=== PATIENT | male | born 1990 | race Caucasian/White ===

== ENCOUNTER 2016-06-11 16:10 | Emergency (ER) | payer MEDICAID ==
[2016-06-11] MEDS ORDERED: Ketorolac 60 MG/2 ML SDV IM ONE (16:36)
--- NOTE | 2016-06-11 16:38 | EDM.PDOC ---
ED HPI GENERAL MEDICAL PROBLEM - General Chief Complaint: ENT Problem Stated Complaint: SORE THROAT Time Seen by Provider: 06/11/16 16:30 - History of Present Illness INITIAL COMMENTS - FREE TEXT/NARRATIVE: HISTORY AND PHYSICAL: History of present illness: The patient is a 25-year-old male with a history of 2-3 days of sore throat nasal congestion cough and bodyaches. He has had subjective fevers and chills but is able to tolerate fluids. He has no abdominal pain chest pain shortness of breath vomiting or diarrhea. There other ill contacts in his household. Patient did not get his influenza shot this year. Patient says that he has discomfort with swallowing and with speaking but he is able to swallow and speak Review of systems: As per history of present illness and below otherwise all systems reviewed and negative. Past medical history: As per history of present illness and as reviewed below otherwise noncontributory. Surgical history: As per history of present illness and as reviewed below otherwise noncontributory. Social history: No reported history of drug or alcohol abuse. Family history: As per history of present illness and as reviewed below otherwise noncontributory. Physical exam: General: Well-developed well-nourished male who is nontoxic vital signs been reviewed by me. He has a slightly softened voice but it is not HEENT: Atraumatic, normocephalic, pupils reactive, negative for conjunctival pallor or scleral icterus, mucous membranes moist, throat clear of exudates and swelling but the posterior oropharynx is very reddened, uvula is midline, there is shotty anterior cervical adenopathy without posterior adenopathy no nuchal rigidity,, neck supple, nontender, trachea midline. Lungs: Clear to auscultation, breath sounds equal bilaterally, chest nontender. Heart: S1S2, regular, negative for clicks, rubs, or JVD. Abdomen: Soft, nondistended, nontender. NABS Genitourinary: Deferred. Rectal: Deferred. Extremities: Atraumatic, negative for cords or calf pain. Neurovascular unremarkable. Neuro: Awake, alert, oriented. Cranial nerves II through XII unremarkable. Cerebellum unremarkable. Motor and sensory unremarkable throughout. Exam nonfocal. Diagnostics: Influenza rapid strep Therapeutics: Toradol Impression: Pharyngitis/ upper respiratory illness Definitive disposition and diagnosis as appropriate pending reevaluation and review of above. throat Pain Score (Numeric/FACES): 9 - Related Data Allergies Allergy/AdvReac Type Severity Reaction Status Date / Time No Known Allergies Allergy Verified 11/04/15 18:30 Home Meds: Home Meds . [No Known Home Meds] 11/04/15 [History] Past Medical History - Past Health History Medical/Surgical History: Denies Medical/Surgical History HEENT History: Reports: None Cardiovascular History: Reports: None Respiratory History: Reports: None Gastrointestinal History: Reports: None Genitourinary History: Reports: None Musculoskeletal History: Reports: Fracture Other Musculoskeletal History: hx of fx in both hands Neurological History: Reports: None Psychiatric History: Reports: None Endocrine/Metabolic History: Reports: Obesity/BMI 30+ Hematologic History: Reports: None Immunologic History: Reports: None Oncologic (Cancer) History: Reports: None Dermatologic History: Reports: None - Past Surgical History Head Surgeries/Procedures: Reports: None HEENT Surgical History: Reports: None Cardiovascular Surgical History: Reports: None Respiratory Surgical History: Reports: None GI Surgical History: Reports: Hernia, inguinal Male Surgical History: Reports: None Endocrine Surgical History: Reports: None Neurological Surgical History: Reports: None Musculoskeletal Surgical History: Reports: None Oncologic Surgical History: Reports: None Dermatological Surgical History: Reports: None Social & Family History - Family History Family Medical History: Noncontributory - Tobacco Use Smoking Status *Q: Never Smoker Second Hand Smoke Exposure: No - Caffeine Use Caffeine Use: Reports: Coffee - Alcohol Use Days Per Week of Alcohol Use: 0 - Recreational Drug Use Recreational Drug Use: No Drug Use in Last 12 Months: No ED ROS GENERAL - Review of Systems Review Of Systems: ROS reveals no pertinent complaints other than HPI. ED EXAM, GENERAL - Physical Exam Exam: See Below (See dictation) Course - Vital Signs Last Recorded V/S: Last Vital Signs Temp 35.9 C 06/11/16 16:25 Pulse 106 H 06/11/16 16:25 Resp 20 06/11/16 16:25 BP 124/73 06/11/16 16:25 Pulse Ox 97 06/11/16 16:25 - Orders/Labs/Meds Orders: Active Orders 24 hr Category Date Time Status CULTURE STREP A CONFIRMATION [RM] Stat Lab 06/11/16 16:57 Results STREP SCRN A RAPID W CULT CONF [RM] Stat Lab 06/11/16 16:57 Results Meds: Medications Discontinued Medications Generic Name Dose Route Start Last Admin Trade Name Иванq PRN Reason Stop Dose Admin Ketorolac Tromethamine 60 mg 06/11/16 16:36 06/11/16 17:00 Toradol IM 06/11/16 16:37 60 mg ONETIME ONE Administration Departure - Departure Time of Disposition: 17:39 Disposition: Home, Self-Care 01 Condition: good Clinical Impression: Pharyngitis Qualifiers: Pharyngitis/tonsillitis etiology: unspecified etiology Qualified Code(s): J02.9 - Acute pharyngitis, unspecified Upper respiratory tract infection Qualifiers: URI type: unspecified URI Qualified Code(s): J06.9 - Acute upper respiratory infection, unspecified Forms: ED Department Discharge Additional Instructions: The following information is given to patients seen in the emergency department who are being discharged to home. This information is to outline your options for follow-up care. We provide all patients seen in our emergency department with a follow-up referral. The need for follow-up, as well as the timing and circumstances, are variable depending upon the specifics of your emergency department visit. If you don't have a primary care physician on staff, we will provide you with a referral. We always advise you to contact your personal physician following an emergency department visit to inform them of the circumstance of the visit and for follow-up with them and/or the need for any referrals to a consulting specialist. The emergency department will also refer you to a specialist when appropriate. This referral assures that you have the opportunity for followup care with a specialist. All of these measure are taken in an effort to provide you with optimal care, which includes your followup. Under all circumstances we always encourage you to contact your private physician who remains a resource for coordinating your care. When calling for followup care, please make the office aware that this follow-up is from your recent emergency room visit. If for any reason you are refused follow-up, please contact the [facility] emergency department at and ask to speak to the emergency department charge nurse. [facility] Primary care- Internal Medicine and Family [address] [address] Push hydration such as water Gatorade and juices and avoid Products. Use over- the-counter Tylenol/open for fever and pain. Take Z-Brian as directed described until it is finished. Please call and followup with primary care in the next few days for further evaluation and treatment. Return to ER as needed and as discussed - My Orders Last 24 Hours: My Active Orders 06/11/16 16:57 CULTURE STREP A CONFIRMATION [RM] Stat STREP SCRN A RAPID W CULT CONF [RM] Stat - Assessment/Plan Last 24 Hours: My Active Orders 06/11/16 16:57 CULTURE STREP A CONFIRMATION [RM] Stat STREP SCRN A RAPID W CULT CONF [RM] Stat
[2016-06-11 19:16] VITALS: BP 103/71
== END 2016-06-11 17:45 | disposition home or self-care (01) ==
LOC: MW.ED 16:10
DX: J02.9 Acute pharyngitis, unspecified (principal); Z68.30 Body mass index [BMI] 30.0-30.9, adult; E66.9 Obesity, unspecified
CPT/HCPCS: 87081; 87804; 87880; 96372; 99283; J1885

== ENCOUNTER 2018-10-13 00:24 | Emergency (ER) | payer SELFPAY ==
[2018-10-13] MEDS ORDERED: Ketorolac 60 MG/2 ML SDV IM ONE (00:52)
--- NOTE | 2018-10-13 00:56 | EDM.PDOC ---
ED HPI GENERAL MEDICAL PROBLEM - General Chief Complaint: Lower Extremity Injury/Pain Stated Complaint: PAIN LEFT FOOT Time Seen by Provider: 10/13/18 00:48 - History of Present Illness INITIAL COMMENTS - FREE TEXT/NARRATIVE: HISTORY AND PHYSICAL: History of present illness: The patient is a 28-year-old male who presents with waking from sleep this evening with sudden onset of pain to the dorsal aspect of his lateral left foot. He knows some swelling and pain but he did not take any medication for it at home and came here immediately for evaluation. He denies any recent trauma but says that he has a history of rolling his ankle many times in the past but is never had a foot injury. He says he has no systemic complaints and other than the pain to his foot he is otherwise in his usual state of good health. The pain radiates down to his toes but is located more laterally and not near the great toe. He has no neurosensory changes in the foot. The patient denies any history of gout or arthritis in the past in his feet Review of systems: As per history of present illness and below otherwise all systems reviewed and negative. Past medical history: As per history of present illness and as reviewed below otherwise noncontributory. Surgical history: As per history of present illness and as reviewed below otherwise noncontributory. Social history: No reported history of drug or alcohol abuse. Family history: As per history of present illness and as reviewed below otherwise noncontributory. Physical exam: General: Well-developed well-nourished man who is nontoxic and vital signs were noted by me. HEENT: Atraumatic, normocephalic, negative for conjunctival pallor or scleral icterus, mucous membranes moist, throat clear, neck supple, nontender, trachea midline. Lungs: Clear to auscultation, breath sounds equal bilaterally, chest nontender. Heart: S1S2, regular rate and rhythm on my evaluation and no overt murmurs Abdomen: Soft, nondistended, nontender. NABS Pelvis: Stable nontender. Genitourinary: Deferred. Rectal: Deferred. Extremities: Atraumatic, negative for cords or calf pain. At the dorsal aspect of the left foot there is soft tissue swelling and tenderness seen along the lateral cuboid area but not extending to the fifth metatarsal and there is tenderness with palpation in this region. There is some slight warmth here. Distally there are no palpable metatarsal defects or deformities no toe defects or deformities or tenderness. At the proximal talus and calcaneus as well as the arch of the foot there is no tenderness swelling erythema defects or deformities nor is there any at the proximal ankle tib-fib or knee. Neurovascular unremarkable. Neuro: Awake, alert, oriented. Cranial nerves II through XII unremarkable. Cerebellum unremarkable. Motor and sensory unremarkable throughout. Exam nonfocal. Diagnostics: X-ray left foot Therapeutics: Toradol was offered but he declines a shot and wants oral meds, I ordered motrin Edgardo, crutches Impression: Left foot pain Definitive disposition and diagnosis as appropriate pending reevaluation and review of above. left foot Pain Score (Numeric/FACES): 7 - Related Data Allergies Allergy/AdvReac Type Severity Reaction Status Date / Time No Known Allergies Allergy Verified 10/13/18 00:41 Home Meds: Home Meds . [No Known Home Meds] 11/04/15 [History] Past Medical History - Past Health History Medical/Surgical History: Denies Medical/Surgical History HEENT History: Reports: None Cardiovascular History: Reports: None Respiratory History: Reports: None Gastrointestinal History: Reports: None Genitourinary History: Reports: None Musculoskeletal History: Reports: Fracture Other Musculoskeletal History: hx of fx in both hands; L ankle sprain Neurological History: Reports: None Psychiatric History: Reports: None Endocrine/Metabolic History: Reports: Obesity/BMI 30+ Hematologic History: Reports: None Immunologic History: Reports: None Oncologic (Cancer) History: Reports: None Dermatologic History: Reports: None - Past Surgical History Head Surgeries/Procedures: Reports: None HEENT Surgical History: Reports: None Cardiovascular Surgical History: Reports: None Respiratory Surgical History: Reports: None GI Surgical History: Reports: Hernia, Inguinal, Other (See Below) Other GI Surgeries/Procedures: R inguinal hernia Male Surgical History: Reports: None Endocrine Surgical History: Reports: None Neurological Surgical History: Reports: None Musculoskeletal Surgical History: Reports: None Oncologic Surgical History: Reports: None Dermatological Surgical History: Reports: None Social & Family History - Family History Family Medical History: Noncontributory - Tobacco Use Smoking Status *Q: Current Every Day Smoker Years of Tobacco use: 1 Packs/Tins Daily: 0.5 - Caffeine Use Caffeine Use: Reports: None - Recreational Drug Use Recreational Drug Use: No Review of Systems - Review of Systems Review Of Systems: ROS reveals no pertinent complaints other than HPI. ED EXAM, GENERAL - Physical Exam Exam: See Below (See dictation) Course - Vital Signs Last Recorded V/S: Last Vital Signs Temp 35.9 C 10/13/18 00:24 Pulse 104 H 10/13/18 00:24 Resp 18 10/13/18 00:24 BP 139/65 10/13/18 00:24 Pulse Ox 97 10/13/18 00:24 - Orders/Labs/Meds Orders: Active Orders 24 hr Category Date Time Status Foot Comp Min 3V Lt [CR] Stat Exams 10/13/18 00:52 Taken DME for Discharge [COMM] Stat Oth 10/13/18 01:28 Ordered Meds: Medications Discontinued Medications Generic Name Dose Route Start Last Admin Trade Name Paola PRN Reason Stop Dose Admin Ibuprofen 800 mg 10/13/18 00:59 10/13/18 01:05 Motrin PO 10/13/18 01:00 800 mg ONETIME ONE Administration Ketorolac Tromethamine 60 mg 10/13/18 00:52 10/13/18 01:05 Toradol IM 10/13/18 00:53 Not Given ONETIME ONE Departure - Departure Time of Disposition: 01:30 Disposition: Home, Self-Care 01 Condition: Good Clinical Impression: Left foot pain - Discharge Information Referrals: PCP,None [Primary Care Provider] - Forms: ED Department Discharge Additional Instructions: The following information is given to patients seen in the emergency department who are being discharged to home. This information is to outline your options for follow-up care. We provide all patients seen in our emergency department with a follow-up referral. The need for follow-up, as well as the timing and circumstances, are variable depending upon the specifics of your emergency department visit. If you don't have a primary care physician on staff, we will provide you with a referral. We always advise you to contact your personal physician following an emergency department visit to inform them of the circumstance of the visit and for follow-up with them and/or the need for any referrals to a consulting specialist. The emergency department will also refer you to a specialist when appropriate. This referral assures that you have the opportunity for followup care with a specialist. All of these measure are taken in an effort to provide you with optimal care, which includes your followup. Under all circumstances we always encourage you to contact your private physician who remains a resource for coordinating your care. When calling for followup care, please make the office aware that this follow-up is from your recent emergency room visit. If for any reason you are refused follow-up, please contact the [facility] emergency department at and ask to speak to the emergency department charge nurse. [facility] Specialty clinic- Podiatry [address] [place] [id number] Fax: [phone] Dr Elle Raya [address] [place] [phone] Ice and elevate the area for the next few days and use medications as given to you from [facility], diclofenac/Voltaren and the Medrol Dosepak. Please connect with one of our account resolution specialist using resources given to above for further care and evaluation. Return to ER as needed and as discussed. Try to not weight-bear for the next 1-2 days. Use Edgardo and crutches for the next 1-2 days and remove the Edgardo bandage at sleep times - My Orders Last 24 Hours: My Active Orders 10/13/18 00:52 Foot Comp Min 3V Lt [CR] Stat 10/13/18 01:28 DME for Discharge [COMM] Stat - Assessment/Plan Last 24 Hours: My Active Orders 10/13/18 00:52 Foot Comp Min 3V Lt [CR] Stat 10/13/18 01:28 DME for Discharge [COMM] Stat
[2018-10-13] MEDS ORDERED: Ibuprofen 800 MG Tab PO ONE (00:59)
[2018-10-13 01:00] VITALS: BP 139/65; PULSE 104
--- NOTE | 2018-10-13 01:29 | CR ---
INDICATION: Non traumatic foot pain TECHNIQUE: Foot radiograph 3 views left COMPARISON: None FINDINGS: Bone: No acute fractures or aggressive bone lesions are identified. Joint: The visualized hindfoot, midfoot, and forefoot joints are unremarkable in appearance. No significant ankle effusion is seen. Soft tissue: Unremarkable. No radiopaque foreign bodies are seen. IMPRESSION: 1. No acute osseous injuries or abnormalities are noted. Dictated by: Luis Joyner MD @ 10/13/2018 01:27:39 (Electronically Signed)
== END 2018-10-13 01:43 | disposition home or self-care (01) ==
LOC: MW.ED 00:24
DX: M79.672 Pain in left foot (principal); F17.210 Nicotine dependence, cigarettes, uncomplicated
CPT/HCPCS: 73630; 99283; A9270

== ENCOUNTER 2019-06-13 21:18 | Observation (INO) | payer SELFPAY ==
[2019-06-13] MEDS ORDERED: Sodium Chloride 0.9% 1,000 ML IV ONE (21:44)
[2019-06-13] MEDS ORDERED: Ondansetron 4 MG/2 ML SDV IVPUSH ONE (21:44)
--- NOTE | 2019-06-13 22:08 | EDM.PDOC ---
ED HPI GENERAL MEDICAL PROBLEM - General Chief Complaint: Abdominal Pain Stated Complaint: VOMITING & STOMACH PAIN Time Seen by Provider: 06/13/19 22:05 Source of Information: Reports: Patient - History of Present Illness INITIAL COMMENTS - FREE TEXT/NARRATIVE: The patient is a 20-year-old male who presents to the ER secondary to severe diffuse abdominal pain and nausea and vomiting. He also is having some tenesmus. No fevers, no chills, no travel. No coughing or any other acute complaints. He states that this started about 630 to 7 PM this evening several hours ago. He has never had this feeling before. Abdomen Pain Score (Numeric/FACES): 8 - Related Data Allergies Allergy/AdvReac Type Severity Reaction Status Date / Time No Known Allergies Allergy Verified 06/13/19 21:29 Home Meds: Home Meds . 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 Hematologic History: Reports: None Immunologic History: Reports: None Oncologic (Cancer) History: Reports: None Dermatologic History: Reports: None - Infectious Disease History Infectious Disease History: Reports: None - Past Surgical History Head Surgeries/Procedures: Reports: None HEENT Surgical History: Reports: None Cardiovascular Surgical History: Reports: None Respiratory Surgical History: Reports: None GI Surgical History: Reports: Hernia, Inguinal, Other (See Below) Other GI Surgeries/Procedures: R inguinal hernia Male Surgical History: Reports: None Endocrine Surgical History: Reports: None Neurological Surgical History: Reports: None Musculoskeletal Surgical History: Reports: None Oncologic Surgical History: Reports: None Dermatological Surgical History: Reports: None Social & Family History - Family History Family Medical History: Noncontributory - Tobacco Use Smoking Status *Q: Current Every Day Smoker Years of Tobacco use: 1 Packs/Tins Daily: 0.3 - Caffeine Use Caffeine Use: Reports: Soda - Recreational Drug Use Recreational Drug Use: No ED ROS GENERAL - Review of Systems Review Of Systems: See Below (Positive for abdominal pain, positive for nausea and vomiting, positive for tenesmus, negative for fevers, all other Positives and pertinent negatives as per HPI. All other pertinent systems were reviewed and are negative) ED EXAM, GI/ABD - Physical Exam Exam: See Below Text/Narrative:: Constitutional: Nontoxic, looks like he does not feel well HEENT.: Normocephalic, Atraumatic, PERRL, EOMI, External ears are atraumatic, nares are patent without epistaxis Neck: Normal range of motion, Trachea Midline, No stridor Respiratory.: No respiratory distress, No tachypnea, Lungs Clear to Auscultation bilaterally without wheezes, rales, or rhonchi Cardiovascular.: Regular rate and Rhythm without murmurs, rubs, or gallops, good peripheral perfusion GI: Abdomen soft and nondistended, there is diffuse, nonspecific tenderness throughout Genital Urinary: Deferred Musculoskeletal: Good range of motion. All 4 extremities present and atraumatic , no edema Back: Full Range of Motion Skin: Warm, Dry, Color is ethnicity appropriate, No acute rash. Lymphatic: No lymphadenopathy noted Neurological: Alert, Awake and oriented x 3, No focal deficits noted appreciate , GCS 15 Psych: Affect, Judgement, mood normal Course - Vital Signs Text/Narrative:: Differential diagnosis includes gastroenteritis, ascending cholangitis, choledocholithiasis, pancreatitis, perforated ulcer, diverticulitis, adult volvulus, adult intussusception, appendicitis, abdominal mass, others Standard abdominal work-up has been initiated and the patient was initially given Zofran and given that he states that the pain only started recently with associated nausea vomiting and to dismiss, I gave him some Hyoscyamine for abdominal cramping. The nausea and vomiting have been improved and the patient's pain improved a little but he was still having some significant discomfort. Abdominal exam is still nonsurgical in nature. Lab work returned which showed an elevated AST, ALT and alk phos but a normal bilirubin and an elevated white blood cell count with a left shift. At this point while gastroenteritis is still in the differential is a viral process can cause lab abnormalities -much higher in the differential is now some type of biliary process such as an early choledocholithiasis, ascending cholangitis, etc. CT scan of the abdomen and pelvis with IV contrast was ordered -we will not the test of choice for the gallbladder -it can be a screening test for other abdominal pathology such as appendicitis, it still is a relatively good test for a biliary process in a patient who is mildly obese like this patient. Radiology called to state that the patient has an appendicitis with a dilated appendix at 14 mm and periappendiceal stranding but no perforation. Added morphine 8 mg IV and Zosyn 4.5 g IV and I called the surgeon Dr. Eisenberg for definitive care. She accepts the patient. Last Recorded V/S: Last Vital Signs Temp 37.0 C 06/13/19 23:29 Pulse 102 H 06/13/19 23:29 Resp 18 06/13/19 23:29 BP 115/68 06/13/19 23:29 Pulse Ox 98 06/13/19 23:29 - Orders/Labs/Meds Orders: Active Orders 24 hr Category Date Time Status Piperacillin/Tazobactam [Piperacil-Tazobact] 4.5 gm Med 06/13/19 23:48 Active Sodium Chloride 0.9% [Normal Saline] 100 ml IV ONETIME Medication Orders Piperacillin Sod/Tazobactam (Sod 4.5 gm/ Sodium Chloride) 100 mls @ 100 mls/hr IV ONETIME ONE Stop: 06/14/19 00:47 Labs: Laboratory Tests 06/13/19 06/13/19 Range/Units 21:35 21:35 WBC 20.73 H (4.0-11.0) K/uL RBC 5.41 (4.50-5.90) M/uL Hgb 16.1 (13.0-17.0) g/dL Hct 47.3 (38.0-50.0) % MCV 87.4 (80.0-98.0) fL MCH 29.8 (27.0-32.0) pg MCHC 34.0 (31.0-37.0) g/dL RDW Std Deviation 43.3 (28.0-62.0) fl RDW Coeff of Corrine 14 (11.0-15.0) % Plt Count 302 (150-400) K/uL MPV 9.60 (7.40-12.00) fL Neut % (Auto) 67.7 (48.0-80.0) % Lymph % (Auto) 23.6 (16.0-40.0) % [place] % (Auto) 6.8 (0.0-15.0) % Eos % (Auto) 1.8 (0.0-7.0) % Baso % (Auto) 0.1 (0.0-1.5) % Neut # (Auto) 14.0 H (1.4-5.7) K/uL Lymph # (Auto) 4.9 H (0.6-2.4) K/uL [place] # (Auto) 1.4 H (0.0-0.8) K/uL Eos # (Auto) 0.4 (0.0-0.7) K/uL Baso # (Auto) 0.0 (0.0-0.1) K/uL Nucleated RBC % 0.0 /100WBC Nucleated RBCs # 0 K/uL Sodium 143 (136-148) mmol/L Potassium 4.0 (3.5-5.1) mmol/L Chloride 102 (98-107) mmol/L Carbon Dioxide 29.9 (21.0-32.0) mmol/L BUN 15 (7.0-18.0) mg/dL Creatinine 1.0 (0.8-1.3) mg/dL Est Cr Clr Drug Dosing 95.67 mL/min Estimated GFR (MDRD) > 60.0 ml/min Glucose 115 H (74-106) mg/dL Calcium 9.0 (8.5-10.1) mg/dL Total Bilirubin 0.5 (0.2-1.0) mg/dL AST 62 H (15-37) IU/L ALT 139 H (14-63) IU/L Alkaline Phosphatase 134 H (46-116) U/L Total Protein 7.5 (6.4-8.2) g/dL Albumin 4.2 (3.4-5.0) g/dL Globulin 3.3 (2.6-4.0) g/dL Albumin/Globulin Ratio 1.3 (0.9-1.6) Meds: Medications Generic Name Dose Route Start Last Admin Trade Name Freq PRN Reason Stop Dose Admin Piperacillin Sod/Tazobactam 100 mls @ 100 mls/hr 06/13/19 23:48 Sod 4.5 gm/ Sodium Chloride IV 06/14/19 00:47 ONETIME ONE Discontinued Medications Generic Name Dose Route Start Last Admin Trade Name Paola PRN Reason Stop Dose Admin Hyoscyamine 0.125 mg 06/13/19 22:09 06/13/19 22:55 Hyomax-Sl SL 06/13/19 22:10 0.125 mg ONETIME ONE Administration Sodium Chloride 1,000 mls @ 999 mls/hr 06/13/19 21:44 06/13/19 21:57 Normal Saline IV 06/13/19 22:44 999 mls/hr STAT ONE Administration Iopamidol 100 ml 06/13/19 22:42 Isovue Multipack-370 (76%) IVPUSH 06/13/19 22:43 ONETIME STA Iopamidol 100 ml 06/13/19 22:43 06/13/19 22:43 Isovue-370 (76%) IVPUSH 06/13/19 22:44 100 ml ONETIME ONE Administration Morphine Sulfate 8 mg 06/13/19 23:48 Morphine IVPUSH 06/13/19 23:49 ONETIME ONE Ondansetron HCl 4 mg 06/13/19 21:44 06/13/19 21:57 Zofran IVPUSH 06/13/19 21:45 4 mg ONETIME ONE Administration Departure - Departure Time of Disposition: 00:02 Disposition: Refer to Observation Condition: Good Clinical Impression: Appendicitis - Discharge Information Referrals: PCP,None [Primary Care Provider] - Forms: ED Department Discharge Sepsis Event Note - Evaluation Sepsis Screening Result: No Definite Risk - Focused Exam Vital Signs: Vital Signs Temp Temp Pulse Resp BP Pulse Ox 06/13/19 23:29 37.0 C 102 H 18 115/68 98 06/13/19 21:25 35.8 C L 96 18 118/75 98 Date Exam was Performed: 06/13/19 Time Exam was Performed: 23:57 - My Orders Last 24 Hours: My Active Orders 06/13/19 23:48 Piperacillin/Tazobactam [Piperacil-Tazobact] 4.5 gm Sodium Chloride 0.9% [ Normal Saline] 100 ml IV ONETIME - Assessment/Plan Last 24 Hours: My Active Orders 06/13/19 23:48 Piperacillin/Tazobactam [Piperacil-Tazobact] 4.5 gm Sodium Chloride 0.9% [ Normal Saline] 100 ml IV ONETIME
[2019-06-13] MEDS ORDERED: Hyoscyamine 0.125 MG Tab.SL SL ONE (22:09)
[2019-06-13 22:14] LABS: BLOOD UREA NITROGEN,BUN 15 mg/dL (7.0-18.0); CARBON DIOXIDE,CO2 29.9 mmol/L (21.0-32.0); CHLORIDE,CL 102 mmol/L (98-107); GLUCOSE RANDOM 115 mg/dL (74-106); SODIUM,NA 143 mmol/L (136-148)
[2019-06-13] MEDS ORDERED: Iopamidol 755 MG/ML 500 ML Multipack Bottle IVPUSH STA (22:42)
[2019-06-13] MEDS ORDERED: Iopamidol 755 Mg/ML 100 ML Bottle IVPUSH ONE (22:43)
--- NOTE | 2019-06-13 23:43 | CT ---
INDICATION: abdominal pain, vomiting CT ABDOMEN AND PELVIS WITH CONTRAST TECHNIQUE: Multidetector CT imaging was performed through the abdomen and pelvis following intravenous contrast administration using 100 mL Isovue 370. Coronal and sagittal reconstructions were generated. COMPARISON: None. FINDINGS: Lower chest: Minimal dependent lung atelectasis in the lower lobes. Liver: Diffuse fatty infiltration of the liver. Mild hepatomegaly. Gallbladder and bile ducts: No gallbladder wall thickening or calcified gallstones. No biliary dilation identified. Pancreas: Unremarkable. Spleen: Normal. Adrenals: No nodules or masses. Kidneys, ureters, and urinary bladder: No renal masses or hydronephrosis. Bladder wall prominence due to nondistention. No bladder mass or definite wall thickening. Gastrointestinal tract and abdominal wall: Normal caliber bowel without wall thickening. Appendicolith within the proximal appendiceal lumen. Enlarged appendix measuring up to 14 millimeters in diameter with mild periappendiceal fat stranding, consistent with appendicitis. Small fat-containing umbilical and supraumbilical hernias. Soft tissue stranding along the right spermatic cord suggesting prior right inguinal hernia repair. Vascular structures: Normal for age. Peritoneum: No free air, abscess, or significant free fluid. Lymph nodes: No pathologically enlarged nodes identified. Reproductive organs: No pelvic masses. Bones: Normal for age. IMPRESSION: 1. Appendicitis. No evidence of appendiceal perforation or abscess. 2. Nonacute additional findings as detailed above. KAYLA GOMES MD [facility] Dictated by Mauricio Gomes MD @ 06/13/2019 11:32:45 PM Dictated by: Mauricio Gomes MD @ 06/13/2019 23:41:09 (Electronically Signed)
[2019-06-13] MEDS ORDERED: Morphine 10 MG/ML Syringe IVPUSH ONE (23:48)
[2019-06-13] MEDS ORDERED: Piperacillin/Tazobactam 4.5 GM in Sodium Chloride 0.9% 100 ML IV ONE (23:48)
[2019-06-14] MEDS ORDERED: Piperacillin/Tazobactam 4.5 GM AdvVial ONE (00:21)
[2019-06-14] MEDS ORDERED: Sodium Chloride 0.9% 100 ML ONE (00:21)
[2019-06-14] MEDS ORDERED: Lactated Ringers 1,000 ML IV ONE (00:29)
[2019-06-14] MEDS ORDERED: HYDROmorphone 1 MG/ML Syringe IVPUSH PRN (00:30)
[2019-06-14] MEDS ORDERED: Ondansetron 4 MG/2 ML SDV IVPUSH PRN (00:31)
[2019-06-14] MEDS ORDERED: Lactated Ringers 1,000 ML IV SCH (00:45)
[2019-06-14] MEDS ORDERED: Piperacillin/Tazobactam 3.375 GM in Sodium Chloride 0.9% 50 ML IV SCH (06:00)
[2019-06-14] MEDS ORDERED: Acetaminophen/HYDROcodone 325-5 MG Tab PO PRN (08:02)
[2019-06-14] MEDS ORDERED: Sodium Chloride 0.9% 10 ML Syringe FLUSH PRN (08:02)
[2019-06-14] MEDS ORDERED: Sodium Chloride 0.9% 10 ML SDV IV PRN (08:02)
[2019-06-14] MEDS ORDERED: Sodium Chloride 0.9% 2.5 ML Syringe FLUSH PRN (08:02)
[2019-06-14] MEDS ORDERED: Bupivacaine 0.5% 10 ML SDV ONE (08:11)
[2019-06-14] MEDS ORDERED: Ondansetron 4 MG/2 ML SDV ONE (08:44)
[2019-06-14] MEDS ORDERED: fentaNYL 100 MCG/2 ML SDV ONE (08:45)
[2019-06-14] MEDS ORDERED: Propofol 200 MG/20 ML SDV ONE (08:45)
[2019-06-14] MEDS ORDERED: Midazolam 1 MG/ML 2 ML SDV ONE (08:46)
[2019-06-14] MEDS ORDERED: Glycopyrrolate 0.2 MG/ML SDV ONE (08:48)
[2019-06-14] MEDS ORDERED: Ketorolac 30 MG/ML SDV ONE (08:50)
[2019-06-14] MEDS ORDERED: HYDROmorphone 2 MG/ML Syringe ONE (08:50)
[2019-06-14] MEDS ORDERED: Sugammadex Sodium 200 MG/2 ML VIAL ONE (08:51)
--- NOTE | 2019-06-14 08:55 | PCM.HP.2 ---
H&P History of Present Illness - General Date of Service: 06/14/19 Admit Problem/Dx: Admission Diagnosis/Problem Admission Diagnosis/Problem Appendicitis Source of Information: Patient History Limitations: Reports: Language Barrier (Used Supervisor [employer] Area for interview and consent ) - History of Present Illness Initial Comments - Free Text/Narative: Patient is a 28 year old slovak speaking male who presented to the ER with lower abdominal pain. It started suddenly last night. It came on suddenly. The pain was worse with movement. It was associated with nausea and vomiting. He denied fevers and chills. He was mildly tachycardic on arrival. VS were otherwise stable. WBC was 20K with no left shift. CT abdomen/pelvis showed a periumbilical hernia as well as acute appendicitis. He was admitted to my service and started on IV zosyn. He was given 2, 1L boluses of crystalloid and his HR improved to normal. Abdomen Pain Score (Numeric/FACES): 0 - Related Data Allergies/Adverse Reactions: Allergies Allergy/AdvReac Type Severity Reaction Status Date / Time No Known Allergies Allergy Verified 06/14/19 01:57 Home Medications: Home Meds . 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 [employer]: None Hematologic History: Reports: None Immunologic History: Reports: None Oncologic (Cancer) History: Reports: None Dermatologic History: Reports: None - Infectious Disease History Infectious Disease History: Reports: None - Past Surgical History Head Surgeries/Procedures: Reports: None HEENT Surgical History: Reports: None Cardiovascular Surgical History: Reports: None Respiratory Surgical History: Reports: None GI Surgical History: Reports: Hernia, Inguinal, Other (See Below) Other GI Surgeries/Procedures: R inguinal hernia Male Surgical History: Reports: None Endocrine Surgical History: Reports: None Neurological Surgical History: Reports: None Musculoskeletal Surgical History: Reports: None Oncologic Surgical History: Reports: None Dermatological Surgical History: Reports: None Social & Family History - Family History Family Medical History: Noncontributory - Tobacco Use Smoking Status *Q: Current Every Day Smoker Years of Tobacco use: 10 Packs/Tins Daily: 1 - Caffeine Use Caffeine Use: Reports: Soda - Recreational Drug Use Recreational Drug Use: No H&P Review of Systems - Review of Systems: Review Of Systems: Comprehensive ROS is negative, except as noted in HPI. Exam - Exam Exam: See Below - Vital Signs Vital Signs: Last Vital Signs Temp 37.2 C 06/14/19 04:18 Pulse 90 06/14/19 04:18 Resp 18 06/14/19 04:18 BP 106/57 L 06/14/19 04:18 Pulse Ox 93 L 06/14/19 04:18 Weight: 97.8 kg - Exam General: Alert, Oriented HEENT: Conjunctiva Clear, Mucosa Moist & [place], Posterior Pharynx Clear Neck: Supple Lungs: Clear to Auscultation, Normal Respiratory Effort Cardiovascular: Regular Rate, Regular Rhythm GI/Abdominal Exam: Soft, No Distention, No Mass, Tender (mild RLQ pain) (Male) Exam: Normal Inspection Back Exam: Normal Inspection Extremities: Normal Inspection - Patient Data Lab Results Last 24 hrs: Laboratory Results - last 24 hr 06/13/19 06/13/19 Range/Units 21:35 21:35 WBC 20.73 H (4.0-11.0) K/uL RBC 5.41 (4.50-5.90) M/uL Hgb 16.1 (13.0-17.0) g/dL Hct 47.3 (38.0-50.0) % MCV 87.4 (80.0-98.0) fL MCH 29.8 (27.0-32.0) pg MCHC 34.0 (31.0-37.0) g/dL RDW Std Deviation 43.3 (28.0-62.0) fl RDW Coeff of Corrine 14 (11.0-15.0) % Plt Count 302 (150-400) K/uL MPV 9.60 (7.40-12.00) fL Neut % (Auto) 67.7 (48.0-80.0) % Lymph % (Auto) 23.6 (16.0-40.0) % [place] % (Auto) 6.8 (0.0-15.0) % Eos % (Auto) 1.8 (0.0-7.0) % Baso % (Auto) 0.1 (0.0-1.5) % Neut # (Auto) 14.0 H (1.4-5.7) K/uL Lymph # (Auto) 4.9 H (0.6-2.4) K/uL [place] # (Auto) 1.4 H (0.0-0.8) K/uL Eos # (Auto) 0.4 (0.0-0.7) K/uL Baso # (Auto) 0.0 (0.0-0.1) K/uL Nucleated RBC % 0.0 /100WBC Nucleated RBCs # 0 K/uL Sodium 143 (136-148) mmol/L Potassium 4.0 (3.5-5.1) mmol/L Chloride 102 (98-107) mmol/L Carbon Dioxide 29.9 (21.0-32.0) mmol/L BUN 15 (7.0-18.0) mg/dL Creatinine 1.0 (0.8-1.3) mg/dL Est Cr Clr Drug Dosing 95.67 mL/min Estimated GFR (MDRD) > 60.0 ml/min Glucose 115 H (74-106) mg/dL Calcium 9.0 (8.5-10.1) mg/dL Total Bilirubin 0.5 (0.2-1.0) mg/dL AST 62 H (15-37) IU/L ALT 139 H (14-63) IU/L Alkaline Phosphatase 134 H (46-116) U/L Total Protein 7.5 (6.4-8.2) g/dL Albumin 4.2 (3.4-5.0) g/dL Globulin 3.3 (2.6-4.0) g/dL Albumin/Globulin Ratio 1.3 (0.9-1.6) Result Diagrams: 06/13/19 21:35 06/13/19 21:35 Sepsis Event Note - Evaluation Sepsis Screening Result: No Definite Risk - Focused Exam Vital Signs: Vital Signs Temp Temp Pulse Resp BP Pulse Ox 06/14/19 04:18 37.2 C 90 18 106/57 L 93 L 06/14/19 00:16 37.3 C 104 H 18 106/71 98 06/13/19 23:29 37.0 C 102 H 18 115/68 98 06/13/19 21:25 35.8 C L 96 18 118/75 98 Date Exam was Performed: 06/14/19 Time Exam was Performed: 08:55 - Problem List (1) Appendicitis SNOMED Code(s): 40432212 ICD Code: K37 - UNSPECIFIED APPENDICITIS Status: Acute Current Visit: Yes (2) Umbilical hernia SNOMED Code(s): 611402352 ICD Code: K42.9 - UMBILICAL HERNIA WITHOUT OBSTRUCTION OR GANGRENE Status: Acute Current Visit: Yes Problem List Initiated/Reviewed/Updated: Yes Orders Last 24hrs: Active Orders 24 hr Category Date Time Status Patient Status [ADT] Routine ADT 06/14/19 08:02 Active Antiembolic Devices [RC] PER UNIT ROUTINE Care 06/14/19 00:37 Active Oxygen Therapy [RC] PRN Care 06/14/19 08:02 Active RT Incentive Spirometry [RC] Q1HWA Care 06/14/19 08:02 Active Up ad Melanie [RC] ASDIRECTED Care 06/14/19 00:31 Active Vital Signs [RC] PER UNIT ROUTINE Care 06/14/19 08:02 Active NPO [Nothing Per Oral Diet] [DIET] Diet 06/14/19 Breakfast Active Acetaminophen/HYDROcodone [[place] 325-5 MG] Med 06/14/19 08:02 Active 2 tab PO Q4H PRN HYDROmorphone [Dilaudid] Med 06/14/19 00:30 Active 0.5 mg IVPUSH Q1H PRN Lactated Ringers [Ringers, Lactated] 1,000 ml Med 06/14/19 00:45 Active IV ASDIRECTED Ondansetron [Zofran] Med 06/14/19 00:31 Active 4 mg IVPUSH Q6H PRN Piperacillin/Tazobactam [Piperacil-Tazobact] 3.375 gm Med 06/14/19 06:00 Active Sodium Chloride 0.9% [Normal Saline] 50 ml IV Q6H Sodium Chloride 0.9% [Normal Saline] Med 06/14/19 08:02 Active 10 ml IV ASDIRECTED PRN Sodium Chloride 0.9% [Saline Flush] Med 06/14/19 08:02 Active 10 ml FLUSH ASDIRECTED PRN Sodium Chloride 0.9% [Saline Flush] Med 06/14/19 08:02 Active 2.5 ml FLUSH ASDIRECTED PRN Peripheral IV Insertion Adult [OM.PC] Urgent Oth 06/14/19 08:02 Ordered SCD [Sequential Compression Device] [OM.PC] Routine Oth 06/14/19 00:37 Ordered Resuscitation Status Routine Resus Stat 06/14/19 08:02 Ordered Medication Orders Hydrocodone Bitart/Acetaminophen ([place] 325-5 Mg) 2 tab PO Q4H PRN PRN Reason: Pain (moderate 4-6) Hydromorphone HCl (Dilaudid) 0.5 mg IVPUSH Q1H PRN PRN Reason: Pain Lactated Ringer's (Ringers, Lactated) 1,000 mls @ 125 mls/hr IV ASDIRECTED [facility] Last Admin: 06/14/19 02:51 Dose: 125 mls/hr Piperacillin Sod/Tazobactam (Sod 3.375 gm/ Sodium Chloride) 50 mls @ 100 mls/ hr IV Q6H [facility] Last Admin: 06/14/19 06:23 Dose: 100 mls/hr Ondansetron HCl (Zofran) 4 mg IVPUSH Q6H PRN PRN Reason: Nausea/Vomiting Sodium Chloride (Saline Flush) 10 ml FLUSH ASDIRECTED PRN PRN Reason: Keep Vein Open Sodium Chloride (Saline Flush) 2.5 ml FLUSH ASDIRECTED PRN PRN Reason: Keep Vein Open Sodium Chloride (Normal Saline) 10 ml IV ASDIRECTED PRN PRN Reason: IV Use Assessment/Plan Comment:: The patient and I discussed his CT findings with an rn primary care. He is aware he has an umbilical hernia. Will discuss repair of this at a later date. I explained [facility] pathophysiology of appendicitis and the need for an appendectomy. I will attempt this laparoscopically but should I be unable to perform it safely I will convert to open. I explained the expected perioperative course with non-ruptured vs ruptured appendicitis as well as the work restrictions with lap vs open surgery. I explained the risks including bleeding, infection or damage to surrounding structures. He verbalized understanding and wishes to proceed.
--- NOTE | 2019-06-14 09:10 | PCM.PREANE ---
Preanesthetic Assessment - Anesthesia/Transfusion/Family Hx Anesthesia History: Prior Anesthesia Without Reaction Family History of Anesthesia Reaction: No Transfusion History: No Prior Transfusion(s) Intubation History: Intubation other than for Surgery in past - Review of Systems General: No Symptoms Pulmonary: No Symptoms Cardiovascular: No Symptoms Gastrointestinal: Abdominal Pain Neurological: No Symptoms Other: Reports: None - Physical Assessment NPO Status Date: 06/14/19 NPO Status Time: 12:00 Vital Signs: Last Vital Signs Temp 37.5 C 06/14/19 08:02 Pulse 84 06/14/19 08:02 Resp 18 06/14/19 08:02 BP 112/62 06/14/19 08:02 Pulse Ox 95 06/14/19 08:02 Height: 1.65 m Weight: 97.8 kg ASA Class: 2E Mental Status: Alert & Oriented x3 ROM/Head Extension: Full Lungs: Clear to Auscultation Cardiovascular: Regular Rate - Lab Values: Laboratory Last Values WBC 20.73 K/uL (4.0-11.0) H 06/13/19 21:35 RBC 5.41 M/uL (4.50-5.90) 06/13/19 21:35 Hgb 16.1 g/dL (13.0-17.0) 06/13/19 21:35 Hct 47.3 % (38.0-50.0) 06/13/19 21:35 MCV 87.4 fL (80.0-98.0) 06/13/19 21:35 MCH 29.8 pg (27.0-32.0) 06/13/19 21:35 MCHC 34.0 g/dL (31.0-37.0) 06/13/19 21:35 RDW Std Deviation 43.3 fl (28.0-62.0) 06/13/19 21:35 RDW Coeff of Corrine 14 % (11.0-15.0) 06/13/19 21:35 Plt Count 302 K/uL (150-400) 06/13/19 21:35 MPV 9.60 fL (7.40-12.00) 06/13/19 21:35 Neut % (Auto) 67.7 % (48.0-80.0) 06/13/19 21:35 Lymph % (Auto) 23.6 % (16.0-40.0) 06/13/19 21:35 [place] % (Auto) 6.8 % (0.0-15.0) 06/13/19 21:35 Eos % (Auto) 1.8 % (0.0-7.0) 06/13/19 21:35 Baso % (Auto) 0.1 % (0.0-1.5) 06/13/19 21:35 Neut # (Auto) 14.0 K/uL (1.4-5.7) H 06/13/19 21:35 Lymph # (Auto) 4.9 K/uL (0.6-2.4) H 06/13/19 21:35 [place] # (Auto) 1.4 K/uL (0.0-0.8) H 06/13/19 21:35 Eos # (Auto) 0.4 K/uL (0.0-0.7) 06/13/19 21:35 Baso # (Auto) 0.0 K/uL (0.0-0.1) 06/13/19 21:35 Nucleated RBC % 0.0 /100WBC 06/13/19 21:35 Nucleated RBCs # 0 K/uL 06/13/19 21:35 Sodium 143 mmol/L (136-148) 06/13/19 21:35 Potassium 4.0 mmol/L (3.5-5.1) 06/13/19 21:35 Chloride 102 mmol/L (98-107) 06/13/19 21:35 Carbon Dioxide 29.9 mmol/L (21.0-32.0) 06/13/19 21:35 BUN 15 mg/dL (7.0-18.0) 06/13/19 21:35 Creatinine 1.0 mg/dL (0.8-1.3) 06/13/19 21:35 Est Cr Clr Drug Dosing 95.67 mL/min 06/13/19 21:35 Estimated GFR (MDRD) > 60.0 ml/min 06/13/19 21:35 Glucose 115 mg/dL (74-106) H 06/13/19 21:35 Calcium 9.0 mg/dL (8.5-10.1) 06/13/19 21:35 Total Bilirubin 0.5 mg/dL (0.2-1.0) 06/13/19 21:35 AST 62 IU/L (15-37) H 06/13/19 21:35 ALT 139 IU/L (14-63) H 06/13/19 21:35 Alkaline Phosphatase 134 U/L (46-116) H 06/13/19 21:35 Total Protein 7.5 g/dL (6.4-8.2) 06/13/19 21:35 Albumin 4.2 g/dL (3.4-5.0) 06/13/19 21:35 Globulin 3.3 g/dL (2.6-4.0) 06/13/19 21:35 Albumin/Globulin Ratio 1.3 (0.9-1.6) 06/13/19 21:35 - Allergies Allergies/Adverse Reactions: Allergies Allergy/AdvReac Type Severity Reaction Status Date / Time No Known Allergies Allergy Verified 06/14/19 01:57 - Blood Blood Available: No Product(s) Available: None - Anesthesia Plan Pre-Op Medication Ordered: None Med Last Dose Date: 06/14/19 Med Last Dose Time: 06:00 (Pippercillin/tazobactin) - Acknowledgements Anesthesia Type Planned: General Anesthesia Pt an Appropriate Candidate for the Planned Anesthesia: Yes Alternatives and Risks of Anesthesia Discussed w Pt/Guardian: Yes Pt/Guardian Understands and Agrees with Anesthesia Plan: Yes Additional Comments: Languages issues. Discussed via interperter. Will proceed. PreAnesthesia Questionnaire - Past Health History Medical/Surgical History: Denies Medical/Surgical History HEENT History: Reports: None Cardiovascular History: Reports: None Respiratory History: Reports: None Gastrointestinal History: Reports: None Genitourinary History: Reports: None Musculoskeletal History: Reports: Fracture Other Musculoskeletal History: hx of fx in both hands; L ankle sprain Neurological History: Reports: None Psychiatric History: Reports: None Endocrine/Metabolic History: Reports: Obesity/BMI 30+ Hematologic History: Reports: None Immunologic History: Reports: None Oncologic (Cancer) History: Reports: None Dermatologic History: Reports: None - Infectious Disease History Infectious Disease History: Reports: None - Past Surgical History Head Surgeries/Procedures: Reports: None HEENT Surgical History: Reports: None Cardiovascular Surgical History: Reports: None Respiratory Surgical History: Reports: None GI Surgical History: Reports: Hernia, Inguinal, Other (See Below) Other GI Surgeries/Procedures: R inguinal hernia Male Surgical History: Reports: None Endocrine Surgical History: Reports: None Neurological Surgical History: Reports: None Musculoskeletal Surgical History: Reports: None Oncologic Surgical History: Reports: None Dermatological Surgical History: Reports: None - SUBSTANCE USE Smoking Status *Q: Current Every Day Smoker Recreational Drug Use History: No - HOME MEDS Home Medications: Home Meds . [No Known Home Meds] 11/04/15 [History] - CURRENT (IN HOUSE) MEDS Current Meds: Current Medications Hydrocodone Bitart/Acetaminophen ([place] 325-5 Mg) 2 tab PO Q4H PRN PRN Reason: Pain (moderate 4-6) Hydromorphone HCl (Dilaudid) 0.5 mg IVPUSH Q1H PRN PRN Reason: Pain Lactated Ringer's (Ringers, Lactated) 1,000 mls @ 125 mls/hr IV ASDIRECTED [facility] Last Admin: 06/14/19 02:51 Dose: 125 mls/hr Piperacillin Sod/Tazobactam (Sod 3.375 gm/ Sodium Chloride) 50 mls @ 100 mls/ hr IV Q6H [facility] Last Admin: 06/14/19 06:23 Dose: 100 mls/hr Ondansetron HCl (Zofran) 4 mg IVPUSH Q6H PRN PRN Reason: Nausea/Vomiting Sodium Chloride (Saline Flush) 10 ml FLUSH ASDIRECTED PRN PRN Reason: Keep Vein Open Sodium Chloride (Saline Flush) 2.5 ml FLUSH ASDIRECTED PRN PRN Reason: Keep Vein Open Sodium Chloride (Normal Saline) 10 ml IV ASDIRECTED PRN PRN Reason: IV Use Discontinued Medications Bupivacaine HCl (Sensorcaine-Mpf 0.5%) Confirm Administered Dose 10 ml .ROUTE .STK-MED ONE Stop: 06/14/19 08:12 Fentanyl (Sublimaze) Confirm Administered Dose 200 mcg .ROUTE .STK-MED ONE Stop: 06/14/19 08:46 Glycopyrrolate (Robinul) Confirm Administered Dose 0.2 mg .ROUTE .STK-MED ONE Stop: 06/14/19 08:49 Hydromorphone HCl (Dilaudid) Confirm Administered Dose 2 mg .ROUTE .STK-MED ONE Stop: 06/14/19 08:51 Hyoscyamine (Hyomax-Sl) 0.125 mg SL ONETIME ONE Stop: 06/13/19 22:10 Last Admin: 06/13/19 22:55 Dose: 0.125 mg Sodium Chloride (Normal Saline) 1,000 mls @ 999 mls/hr IV STAT ONE Stop: 06/13/19 22:44 Last Admin: 06/13/19 21:57 Dose: 999 mls/hr Piperacillin Sod/Tazobactam (Sod 4.5 gm/ Sodium Chloride) 100 mls @ 100 mls/hr IV ONETIME ONE Stop: 06/14/19 00:47 Last Admin: 06/14/19 00:17 Dose: 100 mls/hr Sodium Chloride (Normal Saline) Confirm Administered Dose 100 mls @ as directed .ROUTE .STK-MED ONE Stop: 06/14/19 00:22 Last Admin: 06/14/19 00:36 Dose: Not Given Lactated Ringer's (Ringers, Lactated) 1,000 mls @ 999 mls/hr IV .BOLUS ONE Stop: 06/14/19 01:29 Last Admin: 06/14/19 01:49 Dose: 999 mls/hr Acetaminophen (Ofirmev) Confirm Administered Dose 100 mls @ as directed .ROUTE .STK-MED ONE Stop: 06/14/19 08:53 Iopamidol (Isovue Multipack-370 (76%)) 100 ml IVPUSH ONETIME STA Stop: 06/13/19 22:43 Iopamidol (Isovue-370 (76%)) 100 ml IVPUSH ONETIME ONE Stop: 06/13/19 22:44 Last Admin: 06/13/19 22:43 Dose: 100 ml Ketorolac Tromethamine (Toradol) Confirm Administered Dose 30 mg .ROUTE .STK- MED ONE Stop: 06/14/19 08:51 Midazolam HCl (Versed 1 Mg/Ml) Confirm Administered Dose 2 mg .ROUTE .STK-MED ONE Stop: 06/14/19 08:47 Morphine Sulfate (Morphine) 8 mg IVPUSH ONETIME ONE Stop: 06/13/19 23:49 Last Admin: 06/14/19 00:14 Dose: 8 mg Ondansetron HCl (Zofran) 4 mg IVPUSH ONETIME ONE Stop: 06/13/19 21:45 Last Admin: 06/13/19 21:57 Dose: 4 mg Ondansetron HCl (Zofran) Confirm Administered Dose 4 mg .ROUTE .STK-MED ONE Stop: 06/14/19 08:45 Piperacillin Sod/Tazobactam Sod (Piperacil-Tazobact) Confirm Administered Dose 4.5 gm .ROUTE .STK-MED ONE Stop: 06/14/19 00:22 Last Admin: 06/14/19 00:36 Dose: Not Given Propofol (Diprivan 20 Ml) Confirm Administered Dose 400 mg .ROUTE .STK-MED ONE Stop: 06/14/19 08:46 Sugammadex Sodium (Bridion) Confirm Administered Dose 200 mg .ROUTE .STK-MED ONE Stop: 06/14/19 08:52
--- NOTE | 2019-06-14 09:27 | PCM.SN ---
- Free Text/Narrative Note: Airway note. Mouth 3 fingers. Good ROM. Dentation OK. Mallanpatti 2.
[2019-06-14] MEDS ORDERED: HYDROmorphone 1 MG/ML Syringe IVPUSH ONE (10:35)
--- NOTE | 2019-06-14 11:48 | PCM.POSTAN ---
POST ANESTHESIA ASSESSMENT - MENTAL STATUS Mental Status: Alert - VITAL SIGNS Vital Signs: Last Vital Signs Temp 37.5 C 06/14/19 08:02 Pulse 84 06/14/19 08:02 Resp 18 06/14/19 08:02 BP 112/62 06/14/19 08:02 Pulse Ox 95 06/14/19 08:02 - RESPIRATORY Respiratory Status: Respiratory Rate WNL - CARDIOVASCULAR CV Status: Pulse Rate WNL - GASTROINTESTINAL GI Status: No Symptoms - PAIN Pain Score: 0 - POST OP HYDRATION Hydration Status: Adequate & Stable - OBSERVATIONS Free Text/Narrative:: Doing well. Awakens easily. Will keep on O2 prn. No pain. Ready for floor transfer.
--- NOTE | 2019-06-14 12:26 | PCM.POSTAN ---
POST ANESTHESIA ASSESSMENT - VITAL SIGNS Vital Signs: Last Vital Signs Temp 37.1 C 06/14/19 12:00 Pulse 104 H 06/14/19 12:16 Resp 14 06/14/19 12:16 BP 115/56 L 06/14/19 12:16 Pulse Ox 95 06/14/19 12:16 - RESPIRATORY Respiratory Status: Respiratory Rate WNL - CARDIOVASCULAR CV Status: Pulse Rate WNL - GASTROINTESTINAL GI Status: No Symptoms - PAIN Pain Score: 0 - POST OP HYDRATION Hydration Status: Adequate & Stable (Doing well. Plan to discharge later PM. No problems noted.)
--- NOTE | 2019-06-14 13:14 | OR ---
SURGEON: ASHLEY EISENBERG MD DATE OF PROCEDURE: 06/14/2019 PREOPERATIVE DIAGNOSIS: Acute appendicitis. POSTOPERATIVE DIAGNOSIS: Acute appendicitis. PROCEDURE PERFORMED: Laparoscopic appendectomy. PRIMARY SURGEON: Ashley Eisenberg MD. ANESTHESIA: General endotracheal anesthesia. FLUIDS: 1400 mL of crystalloid. ESTIMATED BLOOD LOSS: 5 mL. URINE OUTPUT: 1000 mL. FINDINGS: Enlarged and inflamed appendix. The appendix was grossly dilated along the mid body, but there was no evidence of perforation. COMPLICATIONS: None. INDICATIONS: The patient is a 28-year-old male who presented with an acute onset of right lower quadrant pain to the emergency room. The pain has been going on for one day. Workup in the emergency room revealed acute appendicitis associated with an appendicolith within the appendix. The patient was admitted to the floor and given IV fluids and IV antibiotics. I visited with him on the floor and discussed the need for an appendectomy. I explained the laparoscopic approach and that I would convert to open should I be unable to perform it safely. The patient and I discussed the risks including bleeding, infection, or damage to surrounding structures. All of this was done both in [place] as well as with an paper products inspector. The patient verbalized understanding and wishes to proceed. PROCEDURE IN DETAIL: The patient was brought into the OR and placed on the OR table in supine position. A time-out was completed verifying the patient's name, age, date of , allergies, and procedure to be performed. General endotracheal anesthesia was induced. The left arm was tucked to the patient's side and a Hunter catheter placed. The abdomen was prepped and draped in usual standard fashion. I anesthetized an area 2 fingerbreadths below the left subcostal margin in the midclavicular line with 0.5% Marcaine plain. A 1-cm incision was made using an 11 blade. A 5-mm optical trocar was used to gain entry into the abdomen through this incision. All layers of the abdominal wall were visualized upon entry. The abdomen was insufflated and a 5-mm 30-degree scope was inserted into the abdomen. I inspected the area underneath my initial trocar placement. No damage to surrounding structures was noted. A 5-mm trocar was placed just left and lateral to the umbilicus under direct visualization as well. A 12-mm trocar was placed in the left lower quadrant under direct visualization. I then turned my attention to the right lower quadrant. The patient was noted to have a supraumbilical hernia containing omentum. A photograph of this was taken. I identified the cecum in the right lower quadrant. I followed the taenia down to the base of the appendix. The appendix was retrocecal. I rotated the cecum medially and was able to identify the tip of the appendix. This was brought anteriorly. I then began to take down the appendiceal mesentery using a Harmonic scalpel device. I took this down in distal to proximal fashion. The mid body of the appendix was grossly dilated and great care was taken not to enter into the appendix. Once the appendiceal mesentery was cleared away from the appendix completely down to the base, I then brought an endoscopic stapling device into the field. I then stapled and transected across the base of the appendix where it inserted on the cecum. This area did not appear to be involved in the inflammatory process. The appendix was then placed in an Endo Catch bag and removed through the 12 mm port site in the left lower quadrant. The port was replaced, and I inspected my operative field. The staple appeared to be in good position and the field was hemostatic. I irrigated the right lower quadrant with a 100 mL of normal saline and suctioned this out. I then removed the 12-mm trocar and closed the 12-mm trocar site fascia with an interrupted 0 Vicryl suture using a Rashaad-Indigo device. The 5-mm trocars were then removed under direct visualization and the abdomen was desufflated. The subcutaneous tissues in the 12-mm trocar site were closed with interrupted 3- 0 Vicryl sutures. The skin was closed with a running 4-0 Monocryl stitch. The 5 mm trocar sites were closed with interrupted 4-0 Monocryl sutures. Steri- Strips and sterile dressings were applied. The patient tolerated the procedure well and was transferred to the PACU in stable condition. STEFAN MARTE /[id number]
[2019-06-15 07:58] VITALS: BP 109/68; PULSE 87
--- NOTE | 2019-06-15 09:19 | PCM.DCSUM1 ---
Discharge Summary - Hospital Course Free Text/Narrative:: Patient presented to the ER with lower abdominal pain. Was found to have a WBC of 20K and CT abdomen pelvis showed acute appendicitis. Patient was admitted, given IVF, IV zosyn, and taken to the OR for a laparoscopic appendectomy. Post operatively he did well but had a poor appetite. He was monitored overnight. This am his vitals are stable, he is tolerating a regular diet, passing flatus, has great UOP and pain is controlled. Cleared for discharge. - Discharge Data Discharge Date: 06/15/19 Discharge Disposition: Home, Self-Care 01 Condition: Good - Referral to Home Health Primary Care Physician: PCP None - Discharge Diagnosis/Problem(s) (1) Appendicitis SNOMED Code(s): 31199391 ICD Code: K37 - UNSPECIFIED APPENDICITIS Status: Acute Current Visit: Yes (2) Umbilical hernia SNOMED Code(s): 980808606 ICD Code: K42.9 - UMBILICAL HERNIA WITHOUT OBSTRUCTION OR GANGRENE Status: Acute Current Visit: Yes - Patient Instructions Diet: Regular Diet as Tolerated Activity: No Lifting Over 20 Pounds (for 4 weeks), Rest and Relax Today Driving: Do Not Drive (for one week ) Showering/Bathing: No Showering (for 2 days after surgery. Ok to shower sunday), No Tub Bathing/Swimming (for 2 weeks ) Wound/Incision Care: Keep Operative Site/Wound Site Clean and Dry Notify Provider of: Fever, Increased Pain, Swelling and Redness, Drainage, Nausea and/or Vomiting - Discharge Plan *PRESCRIPTION DRUG MONITORING PROGRAM REVIEWED*: Yes *COPY OF PRESCRIPTION DRUG MONITORING REPORT IN PATIENT KHARI: Yes Home Medications: Home Meds . [No Known Home Meds] 11/04/15 [History] Patient Handouts: Laparoscopic Appendectomy, Adult, Care After, Appendicitis, Adult, [id number] - Discharge Summary/Plan Comment DC Time >30 min.: No - General Info Date of Service: 06/15/19 Functional Status: Reports: Pain Controlled, Tolerating Diet, Ambulating - Review of Systems General: Reports: No Symptoms HEENT: Reports: No Symptoms Pulmonary: Reports: No Symptoms Cardiovascular: Reports: No Symptoms Gastrointestinal: Reports: No Symptoms Genitourinary: Reports: No Symptoms Musculoskeletal: Reports: No Symptoms Skin: Reports: No Symptoms - Patient Data Vitals - Most Recent: Last Vital Signs Temp 36.9 C 06/15/19 07:57 Pulse 87 06/15/19 07:57 Resp 15 06/15/19 07:57 BP 109/68 06/15/19 07:57 Pulse Ox 94 L 06/15/19 08:02 Weight - Most Recent: 97.8 kg I&O - Last 24 hours: Intake & Output 06/14/19 06/15/19 06/15/19 22:59 06:59 14:59 Intake Total 360 250 Output Total 1100 Balance 360 -850 Med Orders - Current: Current Medications Hydrocodone Bitart/Acetaminophen ([place] 325-5 Mg) 2 tab PO Q4H PRN PRN Reason: Pain (moderate 4-6) Hydromorphone HCl (Dilaudid) 0.5 mg IVPUSH Q1H PRN PRN Reason: Pain Ondansetron HCl (Zofran) 4 mg IVPUSH Q6H PRN PRN Reason: Nausea/Vomiting Sodium Chloride (Saline Flush) 10 ml FLUSH ASDIRECTED PRN PRN Reason: Keep Vein Open Sodium Chloride (Saline Flush) 2.5 ml FLUSH ASDIRECTED PRN PRN Reason: Keep Vein Open Sodium Chloride (Normal Saline) 10 ml IV ASDIRECTED PRN PRN Reason: IV Use Discontinued Medications Bupivacaine HCl (Sensorcaine-Mpf 0.5%) Confirm Administered Dose 10 ml .ROUTE .STK-MED ONE Stop: 06/14/19 08:12 Fentanyl (Sublimaze) Confirm Administered Dose 200 mcg .ROUTE .STK-MED ONE Stop: 06/14/19 08:46 Glycopyrrolate (Robinul) Confirm Administered Dose 0.2 mg .ROUTE .STK-MED ONE Stop: 06/14/19 08:49 Hydromorphone HCl (Dilaudid) Confirm Administered Dose 2 mg .ROUTE .STK-MED ONE Stop: 06/14/19 08:51 Hydromorphone HCl (Dilaudid) 1 mg IVPUSH ONETIME ONE Stop: 06/14/19 10:36 Hyoscyamine (Hyomax-Sl) 0.125 mg SL ONETIME ONE Stop: 06/13/19 22:10 Last Admin: 06/13/19 22:55 Dose: 0.125 mg Sodium Chloride (Normal Saline) 1,000 mls @ 999 mls/hr IV STAT ONE Stop: 06/13/19 22:44 Last Admin: 06/13/19 21:57 Dose: 999 mls/hr Piperacillin Sod/Tazobactam (Sod 4.5 gm/ Sodium Chloride) 100 mls @ 100 mls/hr IV ONETIME ONE Stop: 06/14/19 00:47 Last Admin: 06/14/19 00:17 Dose: 100 mls/hr Sodium Chloride (Normal Saline) Confirm Administered Dose 100 mls @ as directed .ROUTE .STK-MED ONE Stop: 06/14/19 00:22 Last Admin: 06/14/19 00:36 Dose: Not Given Lactated Ringer's (Ringers, Lactated) 1,000 mls @ 999 mls/hr IV .BOLUS ONE Stop: 06/14/19 01:29 Last Admin: 06/14/19 01:49 Dose: 999 mls/hr Lactated Ringer's (Ringers, Lactated) 1,000 mls @ 125 mls/hr IV ASDIRECTED [facility] Last Admin: 06/14/19 02:51 Dose: 125 mls/hr Piperacillin Sod/Tazobactam (Sod 3.375 gm/ Sodium Chloride) 50 mls @ 100 mls/ hr IV Q6H [facility] Last Admin: 06/14/19 06:23 Dose: 100 mls/hr Acetaminophen (Ofirmev) Confirm Administered Dose 100 mls @ as directed .ROUTE .STK-MED ONE Stop: 06/14/19 08:53 Iopamidol (Isovue Multipack-370 (76%)) 100 ml IVPUSH ONETIME STA Stop: 06/13/19 22:43 Iopamidol (Isovue-370 (76%)) 100 ml IVPUSH ONETIME ONE Stop: 06/13/19 22:44 Last Admin: 06/13/19 22:43 Dose: 100 ml Ketorolac Tromethamine (Toradol) Confirm Administered Dose 30 mg .ROUTE .STK- MED ONE Stop: 06/14/19 08:51 Midazolam HCl (Versed 1 Mg/Ml) Confirm Administered Dose 2 mg .ROUTE .STK-MED ONE Stop: 06/14/19 08:47 Morphine Sulfate (Morphine) 8 mg IVPUSH ONETIME ONE Stop: 04/10/20 23:49 Last Admin: 06/14/19 00:14 Dose: 8 mg Ondansetron HCl (Zofran) 4 mg IVPUSH ONETIME ONE Stop: 06/13/19 21:45 Last Admin: 06/13/19 21:57 Dose: 4 mg Ondansetron HCl (Zofran) Confirm Administered Dose 4 mg .ROUTE .STK-MED ONE Stop: 06/14/19 08:45 Piperacillin Sod/Tazobactam Sod (Piperacil-Tazobact) Confirm Administered Dose 4.5 gm .ROUTE .STK-MED ONE Stop: 06/14/19 00:22 Last Admin: 06/14/19 00:36 Dose: Not Given Propofol (Diprivan 20 Ml) Confirm Administered Dose 400 mg .ROUTE .STK-MED ONE Stop: 06/14/19 08:46 Sugammadex Sodium (Bridion) Confirm Administered Dose 200 mg .ROUTE .STK-MED ONE Stop: 06/14/19 08:52 - Exam General: Reports: Alert, Oriented HEENT: Reports: Pupils Equal Lungs: Reports: Normal Respiratory Effort Cardiovascular: Reports: Regular Rate GI/Abdominal Exam: Soft, Non-Tender, No Distention, No Mass Wound/Incisions: Reports: Healing Well, Dressing Dry and Intact
== END 2019-06-15 09:20 | disposition home or self-care (01) ==
LOC: MW.ED 21:18 → MW.SDS 06-14 00:17 → MW.MS 06-14 00:19 → MW.SDS 06-14 16:38 → MW.MS 06-15 06:46
PROVIDERS: ADMIT Surgery; ATTEND Surgery
DX: K35.80 Unspecified acute appendicitis (principal); K42.9 Umbilical hernia without obstruction or gangrene; F17.210 Nicotine dependence, cigarettes, uncomplicated; E66.9 Obesity, unspecified; Z68.36 Body mass index [BMI] 36.0-36.9, adult
CPT/HCPCS: 36415; 44970; 74177; 80053; 85025; 88304; A9270; J0131; J1170; J1885; J2250; J2270; J2405; J2543; J2704; J3010; J3490; J7030; J7050; J7120; Q9967; 99283

== ENCOUNTER 2019-10-03 08:00 | Emergency (ER) | payer OTHER ==
[2019-10-03 08:44] VITALS: BP 122/74; PULSE 90
--- NOTE | 2019-10-03 08:44 | EDM.PDOC ---
ED HPI GENERAL MEDICAL PROBLEM - General Stated Complaint: COLD SYMPTOMS Time Seen by Provider: 10/03/19 08:00 Source of Information: Reports: Patient History Limitations: Reports: No Limitations - History of Present Illness INITIAL COMMENTS - FREE TEXT/NARRATIVE: 29-year-old male with no pertinent past medical history presenting with infectious symptoms. 2-day history of diarrhea, headache, nonproductive cough, subjective fever, body aches. Multiple family members sick at home with similar symptoms. Concern for coronavirus. No self treatment prior to arrival. No recent travel. Denies neck stiffness, chest pain, shortness of breath, vomiting, hematemesis, bloody stools, lightheadedness. Limited physical examination was performed due to COVID pandemic, distance examination to prevent physician exposure and to preserve PPE. Vital signs reviewed. Nursing notes reviewed. Constitutional: Awake, alert, non-distressed. Head: Normocephalic, atraumatic. Eyes: No scleral icterus. NecK: Able to fully flex and extend. Fully rotates side to side. Cardiovascular: No extremity edema. Pulmonary: normal work of breathing, no accessory muscle use. Speaking in full sentences, handling secretions well. Abdomen/GI: nondistended Musculoskeletal: No deformities. Integumentary: Appropriate color for ethnicity, warm, dry, no pallor or jaundice, no rash. Neurologic: Alert, answering questions appropriately, normal speech, no facial droop, moving all extremities well. Psychiatric: Appropriate mood and affect, normal thought process. This patient was seen and evaluated during the 2019 SARS-CoV-2 novel coronavirus pandemic period. Community viral transmission is ongoing at time of this encounter and widespread universal testing is not currently available in our emergency department. - Related Data Allergies Allergy/AdvReac Type Severity Reaction Status Date / Time No Known Allergies Allergy Verified 06/14/19 01:57 Home Meds: Home Meds . 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 Hematologic History: Reports: None Immunologic History: Reports: None Oncologic (Cancer) History: Reports: None Dermatologic History: Reports: None - Infectious Disease History Infectious Disease History: Reports: None - Past Surgical History Head Surgeries/Procedures: Reports: None HEENT Surgical History: Reports: None Cardiovascular Surgical History: Reports: None Respiratory Surgical History: Reports: None GI Surgical History: Reports: Hernia, Inguinal, Other (See Below) Other GI Surgeries/Procedures: R inguinal hernia Male Surgical History: Reports: None Endocrine Surgical History: Reports: None Neurological Surgical History: Reports: None Musculoskeletal Surgical History: Reports: None Oncologic Surgical History: Reports: None Dermatological Surgical History: Reports: None Social & Family History - Family History Family Medical History: Noncontributory - Caffeine Use Caffeine Use: Reports: Soda ED ROS ENT - Review of Systems Review Of Systems: See Below ED EXAM, ENT - Physical Exam Exam: See Below EKG INTERPRETATION EKG Interpretation Comments: 12-Lead ECG Interpretation Acquired: 8:30 AM Rhythm: Sinus rhythm Rate: 91 bpm [place]: Normal Intervals: Normal Ectopy: None Ischemic Changes: None apparent RV Strain: No obvious RV strain pattern. ST Segments/T-Waves: No notable changes Interpretation: Unremarkable Course - Vital Signs Text/Narrative:: Differential includes coronavirus infection, URI, pneumonia, sepsis, etc. Patient appears nontoxic, is afebrile, not tachycardic, no hypoxia noted. No evidence of respiratory compromise. Does not appear systemically ill. Patient is a candidate for coronavirus infection given her constellation of symptoms. This is performed at the [facility] respiratory clinic as we do not have the proper testing media here for patients that are not being admitted to the hospital. She will be discharged from the emergency department with directions to proceed to the respiratory clinic for testing. Did complain of some intermittent chest pain while ambulating. We did obtain a twelve-lead EKG which appears nonischemic. Low suspicion for acute coronary syndrome as the patient has no resting chest discomfort and has no shortness of breath. He has no history of hypertension, hyperlipidemia, or diabetes mellitus. We discussed symptomatic treatment with [id number] Tylenol and Motrin and plenty of fluids. Can follow-up with a primary doctor as needed. Strict ED return precautions for shortness of breath or chest pain. Instructed to isolate from family members as she is able to and also to stay home from work with appropriate isolation duration discussed. All questions were answered prior to departure. Departure - Departure Time of Disposition: 08:43 Disposition: Home, Self-Care 01 Condition: Good Clinical Impression: Infection due to 2019 novel coronavirus, Atypical chest pain - Discharge Information *PRESCRIPTION DRUG MONITORING PROGRAM REVIEWED*: Not Applicable *COPY OF PRESCRIPTION DRUG MONITORING REPORT IN PATIENT KHARI: Not Applicable Instructions: Nonspecific Chest Pain, Adult, COVID-19 Frequently Asked Questions, COVID-19: How to Protect Yourself and Others - CDC, Prevent the Spread of COVID-19 if You Are Sick - CDC Referrals: [facility] - [facility] Practice [Provider Group] Additional Instructions: Go directly to the respiratory clinic for coronavirus testing. Stay at home and do not go to work until your symptoms have been present for at least 7 days, and you have been totally well for at least 72 hours. Follow-up with a family doctor with any concerns. Return to the emergency department immediately if you are feeling short of breath, having chest pain, or if you have any other new or concerning symptoms. Thank you for choosing the [facility] emergency department in [place] for your medical needs today. It was a pleasure caring for you. The following information is given to patients seen in the emergency department who are being discharged. This information is to outline your options for follow-up care. We provide all patients seen in our emergency department with a follow-up referral. The need for follow-up, as well as the timing and circumstances, are variable depending upon the specifics of your emergency department visit. If you don't have a primary care physician on staff, we will provide you with a referral. We always advise you to contact your personal physician following an emergency department visit to inform them of the circumstance of the visit and for follow-up with them and/or the need for any referrals to a consulting specialist. The emergency department will also refer you to a specialist when appropriate. This referral assures that you have the opportunity for follow-up care with a specialist. All of these measure are taken in an effort to provide you with optimal care, which includes your follow-up. Under all circumstances we always encourage you to contact your private physician who remains a resource for coordinating your care. When calling for follow-up care, please make the office aware that this follow-up is from your recent emergency room visit. If for any reason you are refused follow-up, please contact the [facility] Emergency Department at and asked to speak to the emergency department charge nurse. If you do not have a primary care physician that is caring for you, you can contact these clinics below to set up an appointment to establish care: [facility] - Primary Care [address] [place] [id number] [facility] [address] [place] [id number]
== END 2019-10-03 08:55 | disposition home or self-care (01) ==
LOC: MW.ED 08:00
DX: U07.1 COVID-19 (principal); R07.89 Other chest pain; E66.9 Obesity, unspecified; Z68.27 Body mass index [BMI] 27.0-27.9, adult
CPT/HCPCS: 93005; 99282; 99284-25

== ENCOUNTER 2019-10-28 00:52 | Emergency (ER) | payer OTHER ==
--- NOTE | 2019-10-28 02:31 | EDM.PDOC ---
ED HPI GENERAL MEDICAL PROBLEM - General Chief Complaint: General Stated Complaint: MEDICAL CLEARANCE; COVID POSITIVE Time Seen by Provider: 10/28/19 01:12 Source of Information: Reports: Patient, Police - History of Present Illness INITIAL COMMENTS - FREE TEXT/NARRATIVE: History of present illness: 29-year-old male brought by law enforcement for medical clearance prior to correction. The patient has no complaints, however when law enforcement called to transport him, they were informed by their superiors that they needed to have medical clearance because the patient had a positive COVID test on October 08, 2019. Patient reports at that time he was having fevers, chills, chest pain, however he has not had any symptoms for a long time and has none of those symptoms today. No fevers. He is somewhat sweating here when he arrived, however he reports it was very hot where he was outside. Review of systems: As per history of present illness and below otherwise all systems reviewed and negative. Past medical history: As per history of present illness and as reviewed below otherwise noncontributory. Surgical history: As per history of present illness and as reviewed below otherwise noncontrib utory. Social history: No reported history of drug or alcohol abuse. Smoking Family history: As per history of present illness and as reviewed below otherwise noncontributory. Physical exam: GEN: no acute distress, well appearing HEENT: Atraumatic, normocephalic, mucous membranes moist, Neck: supple Lungs: No respiratory distress. Heart: Mildly tachycardic Extremities: Atraumatic. Neurovascularly intact. Neuro: Awake, alert, oriented. Neuro Exam nonfocal. Normal gait. Skin: warm, dry, no lesions Psych: Possibly appears somewhat anxious, otherwise normal mood and affect, denies suicidal or homicidal ideation. Diagnostics: EKG Therapeutics: [] MDM: Impression: [] Plan: [] Definitive disposition and diagnosis as appropriate pending reevaluation and review of above. - Related Data Allergies Allergy/AdvReac Type Severity Reaction Status Date / Time No Known Allergies Allergy Verified 10/28/19 01:00 Home Meds: Home Meds . 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 Hematologic History: Reports: None Immunologic History: Reports: None Oncologic (Cancer) History: Reports: None Dermatologic History: Reports: None - Infectious Disease History Infectious Disease History: Reports: None - Past Surgical History Head Surgeries/Procedures: Reports: None HEENT Surgical History: Reports: None Cardiovascular Surgical History: Reports: None Respiratory Surgical History: Reports: None GI Surgical History: Reports: Appendectomy, Hernia, Inguinal, Other (See Below) Other GI Surgeries/Procedures: R inguinal hernia Male Surgical History: Reports: None Endocrine Surgical History: Reports: None Neurological Surgical History: Reports: None Musculoskeletal Surgical History: Reports: None Oncologic Surgical History: Reports: None Dermatological Surgical History: Reports: None Social & Family History - Family History Family Medical History: Noncontributory - Tobacco Use Smoking Status *Q: Never Smoker - Caffeine Use Caffeine Use: Reports: Soda - Recreational Drug Use Recreational Drug Use: No ED ROS GENERAL - Review of Systems Review Of Systems: See Below (See HPI) ED EXAM, GENERAL - Physical Exam Exam: See Below (See HPI) EKG INTERPRETATION EKG Interpretation Comments: EKG performed today at 1:49 AM, sinus tachycardia, rate 111, no acute ischemia, no STEMI, QTC 427. Course - Vital Signs Last Recorded V/S: Last Vital Signs Temp 97.0 F 10/28/19 01:01 Pulse 107 H 10/28/19 02:50 Resp 17 10/28/19 02:13 BP 127/91 H 10/28/19 01:01 Pulse Ox 97 10/28/19 02:13 - Orders/Labs/Meds Orders: Active Orders 24 hr Category Date Time Status EKG 12 Lead [EKG Documentation Completion] [RC] STAT Care 10/28/19 01:43 Active - Re-Assessments/Exams Free Text/Narrative Re-Assessment/Exam: 10/28/19 03:03 Patient's heart rate is still somewhat elevated, however he is resting comfortably and in no acute distress. He is still asymptomatic. He does now report that he is somewhat anxious about going to correction. Heart rate 104 on reexamination. Patient is now medically cleared to police. Departure - Departure Time of Disposition: 03:04 Disposition: Home, Self-Care 01 Clinical Impression: Medical clearance for incarceration, Tachycardia - Discharge Information Instructions: Sinus Tachycardia, Preventive Care 21-39 Years Old, Male, Medical Screening Exam Referrals: PCP,None [Primary Care Provider] - Deedee Lugo MD [Physician] - 3 Days Forms: ED Department Discharge Additional Instructions: Please drink plenty of fluids and get plenty of rest. If you continue to have elevated heart rates, please follow-up with the side panel padder listed above. If you develop any chest pain, difficulty breathing or high fevers please return to the emergency department for reevaluation. The following information is given to patients seen in the emergency department who are being discharged to home. This information is to outline your options for follow-up care. We provide all patients seen in our emergency department with a follow-up referral. The need for follow-up, as well as the timing and circumstances, are variable depending upon the specifics of your emergency department visit. If you don't have a primary care physician on staff, we will provide you with a referral. We always advise you to contact your personal physician following an emergency department visit to inform them of the circumstance of the visit and for follow-up with them and/or the need for any referrals to a consulting specialist. The emergency department will also refer you to a specialist when appropriate. This referral assures that you have the opportunity for follow-up care with a specialist. All of these measure are taken in an effort to provide you with optimal care, which includes your follow-up. Under all circumstances we always encourage you to contact your private physician who remains a resource for coordinating your care. When calling for follow-up care, please make the office aware that this follow-up is from your recent emergency room visit. If for any reason you are refused follow-up, please contact the [facility] Emergency Department at and asked to speak to the emergency department charge nurse. [facility] - Primary Care [address] [place] [id number] [facility] [address] [place] [address] Sepsis Event Note (ED) - Evaluation Sepsis Screening Result: No Definite Risk - Focused Exam Vital Signs: Vital Signs Temp Pulse Resp BP Pulse Ox 10/28/19 02:50 107 H 10/28/19 02:13 113 H 17 97 10/28/19 01:38 123 H 97 10/28/19 01:01 97.0 F 129 H 18 127/91 H 97 - My Orders Last 24 Hours: My Active Orders 10/28/19 01:43 EKG 12 Lead [EKG Documentation Completion] [RC] STAT - Assessment/Plan Last 24 Hours: My Active Orders 10/28/19 01:43 EKG 12 Lead [EKG Documentation Completion] [RC] STAT
[2019-10-28 03:33] VITALS: BP 121/77; PULSE 102
== END 2019-10-28 03:19 ==
LOC: MW.ED 00:52
DX: R00.0 Tachycardia, unspecified (principal); U07.1 COVID-19; E66.9 Obesity, unspecified; Z90.49 Acquired absence of other specified parts of digestive tract; Z68.31 Body mass index [BMI] 31.0-31.9, adult
CPT/HCPCS: 93005; 99282; 99285-25

== ENCOUNTER 2022-03-29 01:55 | Emergency (ER) | payer BC, OTHER ==
[2022-03-29 03:03] VITALS: BP 110/72; PULSE 73
== END 2022-03-29 03:03 | disposition home or self-care (01) ==
LOC: MW.ED 01:55
DX: K08.89 Other specified disorders of teeth and supporting structures (principal)
CPT/HCPCS: 99282